=== PATIENT | male | born 1950 | race American Indian/Alaskan Native ===

== ENCOUNTER 2017-09-26 15:31 | Outpatient (CLI) | payer MEDICARE | END 2017-09-26 15:32 | disposition home or self-care (01) | LOC: VAS 15:31 | PROVIDERS: ATTEND Podiatrist Foot & Ankle Surgery | DX: M79.662 Pain in left lower leg (principal); M79.661 Pain in right lower leg; M79.89 Other specified soft tissue disorders | CPT/HCPCS: 93970 ==